=== PATIENT | male | born 1955 | race Caucasian/White ===

== ENCOUNTER 2025-02-03 13:53 | Outpatient (AMB) | payer MEDICARE, SELFPAY ==
--- NOTE | 2025-02-03 14:15 | MHC.OFFVIS ---
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 States his left ring finger is catching and locking for the last 3 weeks ago. He also has dupuytrens that is worsening. Patient states he last received an injection with Dr Figueroa 6 month that did not help much with his dupuytrens. Hx of bilateral hand CTR with Dr Figueroa. Allergies No Known Allergies Allergy (Verified 02/03/25 14:26) HPI HPI OUTDOOR LANDSCAPE ARCHITECT- Lt RF Dupuytrens: Details: Taye is a 69 year old right hand dominant man who presents with complains of left ring finger locking. He complains of painful locking & catching of his left ring finger for ~3 weeks now. He says he also has a Dupuytrens contracture of his left ring finger. He reportedly received an injection by Dr. Figueroa About a year ago which did not help. He is unsure what this injection was for, and when asked about Dupuytrens he kept referring back to his finger locking. He has a Hx of a right carpal tunnel release and a right ring finger partial Dupuytren's fasciectomy performed on 06/23/[address] Figueroa. We obtained a copy of the operative report. He denies any numbness or tingling. He says he has a prior history of what is perhaps a skin graft to his ring finger, taking from his forearm. He reports two prior surgeries to his left ring finger and possibly small finger within the last 10-15 years. Both done at [facility], one by Dr. Owen or jah Gamez, and the second by Dr. Figueroa. Patient was somewhat confused about exactly what was done and when. We will be attempting to obtain operative reports from the surgeries to better understand what has been done to this hand already. [facility] Surgical History (Updated 02/03/25 @ 14:27 by MANJINDER Hernandes) History of lateral meniscus repair of left knee History of carpal tunnel release Social History (Updated 02/03/25 @ 14:27 by MANJINDER Hernandes) Current occupation: [employer]/ rt hand Review of Systems Const All systems reviewed & are unremarkable except as noted in HPI and below Physical Exam Vital Signs: BMI result Body Mass Index 18.8 Const General: cooperative, healthy appearing and no acute distress Orientation/consciousness: patient oriented x3 HEENT Head: Yes normocephalic and Yes atraumatic Eyes EOM: EOMs intact bilaterally Resp Effort & Inspection: normal respiratory effort and able to speak in complete sentences Cardio Jugular venous distension: no JVD Skin General skin exam: turgor normal Rashes: no rashes Neuro General: patient oriented x3 Extrem Other: Evaluation of Left Upper Extremity: The patient is alert, oriented, and in no acute distress Neuro: Median, Ulnar, Radial nerves motor and sensory intact and sensation is normal to the tips of all digits Vascular: Cap refill brisk ROM: He can make a fist and extend all his digits Palpable catching of the ring finger when extending from a tight fist Ring finger Dupuytrens contracture MCP 20/PIP 40 There is a mass Dupuytrens nodule just radial and proximal to the palmar digital crease, and a central cord extending from the palm up to the middle phalanx of his ring finger. I do not see any clear evidence of a skin graft. Surgical scars are not clear on the ring finger. It is not really clear from talking to him whether he had a skin or a tendon graft from his forearm. He also has evidence of a healed Day's incision on the volar aspect of the small finger and the small finger can be easily brought into full extension. Skin: No lacerations or abrasions. He has well-healed scars over the small finger General: No Ecchymosis. No Erythema or evidence of infection. Psych Appearance: grossly normal Affect: normal affect Attitude: cooperative Assessment & Plan Assessment & Plan (1) Trigger ring finger of left hand: Code(s): M65.342 - Trigger finger, left ring finger Category: Medical (2) Dupuytren's contracture of left hand: Comment: Code(s): M72.0 - Palmar fascial fibromatosis [Dupuytren] Category: Medical (3) Poor historian: Code(s): Z78.9 - Other specified health status Category: Medical Plan Assessment & Plan: 1. Left ring finger trigger finger This is his chief complaint today I educated him about this condition I discussed operative and non-operative treatment options No intervention indicated today 2. Left ring finger Dupuytrens contracture MCP 20/PIP 40 Patient reports a Hx of two left ring finger surgeries done within the last 10-15 years. He is a poor historian and is unclear what these procedures were for. He says his first surgery was done by Dr. Tucker or Mar[place], and the second was done by Dr. Figueroa at [facility]. While he was in clinic, we obtained records from [facility] for a RIGHT carpal tunnel release & RIGHT ring finger partial palmar fasciectomy, DOS: 06/23/[address] Figueroa. No information seen in the last 5 years, or readily accessible for any left hand procedures. I educated him about this condition I discussed treatment options Prior to any intervention, I explained that I need a copy of his prior operative reports before I would consider possible surgical intervention. He will speak with Sarina concerning giving authorization to have his records sent over He can follow up to discuss treatment options when he has a copy of these reports sent over for review. Scribed for Debra Perez MD by Richard Agudelo, medical delivery driver, on 02/03/25 at 2:40 PM, EST. Coding Level of Care Code New Pt Level 4 (43821) Diagnoses Trigger ring finger of left hand M65.342 Dupuytren's contracture of left hand M72.0 Poor historian Z78.9
[2025-02-03 14:18] VITALS: BMI 18.8
--- OUTSIDE RECORDS SUMMARY | 2025-02-03 16:54 | XMS_ITS | Clinical Summary ---
Author Organization [facility] Address [address] [address] Phone Care Team Providers Care Marketing Support Coordinator Name Role Phone Unknown, Unknown Primary Care Provider Minerva lew Social History Tobacco Use Types Packs/Day Years Used Date Smoking Tobacco: Never Assessed Education Answer Date Recorded Are you interested in more education? Not on doc e 08/18/2022 Are you concerned about learning? Not on file 08/18/2022 No 08/18/2022 No 08/18/2022 Digital Access Answer Date Recorded No 09/16/2022 No 09/16/2022 No 09/16/2022 Reliable internet access at home? Not on file 09/16/2022 Device with a working camera? Not on file Sex and Gender Information Value Date Recorded Sex Assigned at Not on file Legal Sex Male 9:53 PM EDT Gender Identity Not on file Sexual Orientation Not on file Plan of Treatment Health Maintenance Due Date Last Done Comments Adult Td,Tdap Booster 1956 LIPID PANEL 1956 DEPRESSION SCREENING 1968 SMOKING Hx and SMOKELESS TOBACCO SCREENING 1969 HEPATITIS C SCREENING 1974 COLOGUARD 2001 COLONOSCOPY 2001 COLORECTAL CANCER SCREENING 2001 FIT TEST 2001 FOBT 2001 SIGMOIDOSCOPY 2001 VIRTUAL COLONOSCOPY 2001 PNEUMOCOCCAL VACCINES (50+ years) (1 of 1 - PCV) 2006 ZOSTER VACCINES (1 of 2) 2006 INFLUENZA VACCINE (#1) 2024 COVID-19 VACCINE (3 - 2024-2 6 season) 2024 12/11/2020, 11/12/2020 RSV VACCINE (1 - 1-dose 75+ series) 07/15/2031 HEPATITIS A VACCINES Aged Out No long er eligible based on patient's age to complete this topic HIB VACCINES Aged Out No longer eligi ble based on patient's age to complete this topic MENINGOCOCCAL VACCINES (ACWY) Aged Out No longer eligible based on patient's age to complete this topic MENINGOCOCCAL VACCINES (B) Aged Out N o longer eligible based on patient's age to complete this topic Medical Devices Not on file Insurance [employer] [facility] [email or web address] TOGETHER Member Subscriber Plan / Payer (Ef fective 2017-Present) Name:Kennedi Sr Relation to Subscriber:Self Name:KENNEDI SR Payer ID:[id number] (NAIC) Group ID:Not on file Type:Medicaid Address: [address] [employer] [place] [place] [address] [employer] [facility] [email or web address] [facility] DIRECT HEALTH [employer] TOGETHER [place] [address] [employer] TOGETHER Member Subscriber Plan / Payer (Ef fective 2017-Present) Name:Kennedi Sr Relation to Subscriber:Self Name:KENNEDI SR Payer ID:[id number] (NAIC) Group ID:Not on file Type:Medicaid Phone: Address: [address] DIRECT [employer] TO[employer]HER Member Subscriber Plan / Payer (Ef fective 2017-Present) Name:Kennedi Sr Relation to Subscriber:Self Name:KENNEDI SR Payer ID:[id number] (NAIC) Group ID:Not on file Type:Medicaid Phone: Address: [address] DIRECT [facility] [employer] TOGETHER Member Subscriber Plan / Payer (Ef fective 2017-Present) Name:Kennedi Sr Relation to Subscriber:Self Name:KENNEDI SR Payer ID:[id number] (NAIC) Group ID:Not on file Type:Medicaid Address: [address] DIRECT [facility] TOGETHER Member Subscriber Plan / Payer (Ef fective 2017-Present) Name:Kennedi Sr Relation to Subscriber:Self Name:KENNEDI SR Payer ID:[id number] (NAIC) Group ID:Not on file Type:Medicaid Address: [address] DIRECT [employer] [place] [employer] TOGETHER Member Subscriber Plan / Payer (Ef fective 2017-Present) Name:Kennedi Sr Relation to Subscriber:Self Name:KENNEDI SR Payer ID:[id number] (NAIC) Group ID:Not on file Type:Medicaid Phone: Address: [address] DIRECT [facility] [employer] TOGETHER Member Subscriber Plan / Payer (Ef fective 2017-Present) Name:Kennedi Sr Relation to Subscriber:Self Name:KENNEDI SR Payer ID:[id number] (NAIC) Group ID:Not on file Type:Medicaid Phone: Address: [address] DIRECT Care Teams Marketing Support Coordinator Relationship Specialty Start Date End Date Unknown, Unknown, PCP - General 01/05/20 Additional Source Comments The information contained in this document represents components of the legal health record. It is not the complete legal health record.[facility]
== END 2025-02-03 15:03 | disposition home or self-care (01) ==
LOC: HO.HOS 13:54
PROVIDERS: PCP Internal Medicine; Visit Provider Orthopaedic Surgery
DX: M65.342 Trigger finger, left ring finger (principal); M72.0 Palmar fascial fibromatosis [Dupuytren]; Z78.9 Other specified health status
CPT/HCPCS: 99204

== ENCOUNTER → 2025-02-03 13:53 | Outpatient (BNVA) | payer MEDICARE, SELFPAY | PROVIDERS: PCP Internal Medicine; Visit Provider Orthopaedic Surgery | DX: M65.342 Trigger finger, left ring finger (principal); M72.0 Palmar fascial fibromatosis [Dupuytren]; Z78.9 Other specified health status; M65.4 Radial styloid tenosynovitis [de Quervain] | CPT/HCPCS: 99202 ==